=== PATIENT | female | born 1980 | race Caucasian/White ===

== ENCOUNTER 2017-12-29 12:23 | Emergency (ER) | END 2017-12-29 15:56 | disposition home or self-care (01) ==

== ENCOUNTER 2018-08-18 22:06 | Outpatient (CLI) | END 2018-08-18 23:45 | disposition home or self-care (01) ==

== ENCOUNTER 2018-08-19 05:08 | Inpatient (IN) | END 2018-08-22 16:50 | disposition home or self-care (01) | DRG 787 ==